=== PATIENT | female | born 1970 | race Asian ===

== ENCOUNTER 2017-03-12 01:47 | Outpatient (CLI) | payer BC | END 2017-03-12 01:48 | disposition home or self-care (01) | LOC: BICULT 01:47 | PROVIDERS: ATTEND Orthopaedic Surgery | DX: R10.31 Right lower quadrant pain (principal); N88.8 Other specified noninflammatory disorders of cervix uteri; D25.9 Leiomyoma of uterus, unspecified | CPT/HCPCS: 76856 ==

== ENCOUNTER 2018-12-28 09:06 | Outpatient (CLI) | payer BC ==
--- NOTE | 2018-12-28 10:29 | ULT ---
US Abdominal: 12/28/2018 12:00 AM CLINICAL HISTORY: Left lower quadrant abdominal pain. STUDY: Complete abdominal ultrasound COMPARISON: None. FINDINGS: Liver: Size: Normal. Echogenicity: Normal. Contour: Smooth. Mass: None. Common bile duct: 4 mm Gallbladder: Normal. Pancreas: Head, body, and tail appear normal. Inferior vena cava: Normal in caliber Aorta: Normal in caliber Spleen: No focal lesions. Spleen measuring 7.9 cm in length. Right kidney: No pelvicalyceal dilatation. Right kidney measuring 10.0 cm in length. Left kidney: No pelvicalyceal dilatation. A 3.0 cm cyst is seen in the left kidney. Left kidney measu ring 10.6 cm in length. IMPRESSION: Left renal cyst; otherwise unremarkable exam.
== END 2018-12-28 09:07 | disposition home or self-care (01) ==
LOC: SCSULT 09:06
PROVIDERS: ATTEND Internal Medicine Gastroenterology
DX: Z12.11 Encounter for screening for malignant neoplasm of colon (principal); R10.12 Left upper quadrant pain; K62.89 Other specified diseases of anus and rectum; R19.4 Change in bowel habit; N28.1 Cyst of kidney, acquired
CPT/HCPCS: 76700